=== PATIENT | female | born 2000 | race Caucasian/White ===

== ENCOUNTER 2023-03-04 12:30 | Emergency (ER) | payer MEDICAID ==
[2023-03-04 13:11] LABS: BASOPHILS ABSOLUTE AUTO 0.02 K/uL (0.02-0.10); BASOPHILS PERCENT AUTO 0.4 % (0.0-0.5); EOSINOPHILS ABSOLUTE AUTO 0.06 K/uL (0.04-0.40); EOSINOPHILS PERCENT AUTO 1.2 % (1.0-5.0); HEMATOCRIT 42.9 % (37.0-47.0); HEMOGLOBIN 14.7 g/dL (11.5-16.5); LYMPHOCYTES ABSOLUTE AUTO 1.35 K/uL (1.50-4.00); LYMPHOCYTES PERCENT AUTO 26.1 % (20.0-40.0); MEAN CORPUSCULAR HEMOGLOBIN 30.4 pg (27.0-32.0); MEAN CORPUSCULAR HGB CONC 34.3 g/dL (31.0-35.0); MEAN CORPUSCULAR VOLUME 89 fL (76-96); MEAN PLATELET VOLUME 10.5 fL (6.0-10.0); MONOCYTES ABSOLUTE AUTO 0.37 K/uL (0.20-0.80); MONOCYTES PERCENT AUTO 7.1 % (3.0-10.0); NEUTROPHILS ABSOLUTE AUTO 3.38 K/uL (2.00-7.50); NEUTROPHILS PERCENT AUTO 65.2 % (45.0-70.0); PLATELET COUNT,PLT 223 K/uL (150-500); RED BLOOD CELL COUNT 4.84 M/uL (3.80-5.80); WHITE BLOOD CELL COUNT,WBC 5.2 K/uL (4.0-11.0)
[2023-03-04 13:33] LABS: A/G RATIO 1.5 (0.8-2.0); ALBUMIN 5.1 g/dL (3.4-5.0); ANION GAP 13.5 mmol/L (5.0-15.0); BUN/CREATININE RATIO 14.1 (6-25); CALCIUM 9.5 mg/dL (8.5-10.1); CARBON DIOXIDE,CO2 29.5 mmol/L (21.0-32.0); CREATININE 0.92 mg/dL (0.55-1.02); EST CRCL DRUG DOSING (CG) 82.42 mL/min; PROTEIN TOTAL,TP 8.5 g/dL (6.4-8.2)
[2023-03-04 13:40] LABS: APPEARANCE,URINE CLEAR (CLEAR); BILIRUBIN,URINE NEGATIVE (NEGATIVE); COLOR,URINE YELLOW; GLUCOSE,URINE NEGATIVE (NEGATIVE); KETONES,URINE NEGATIVE (NEGATIVE); LEUKOCYTE ESTERASE,URINE NEGATIVE (NEGATIVE); NITRITE,URINE NEGATIVE (NEGATIVE); OCCULT BLOOD,URINE SMALL (NEGATIVE); PROTEIN,URINE NEGATIVE (NEGATIVE); UROBILINOGEN,URINE 0.2 E.U./dL (0.2-1.0)
[2023-03-04 13:47] LABS: BACTERIA,URINE FEW /HPF; MUCUS,URINE FEW /HPF; RBC,URINE 0-5 /HPF; SQUAMOUS EPITHELIAL CELLS,UR FEW /HPF; WBC,URINE 0-5 /HPF
[2023-03-04] MEDS ORDERED: Azithromycin 250 MG Tab PO ONE (14:42)
[2023-03-04] MEDS ORDERED: cefTRIAXone 500 MG Vial IM ONE (14:43)
[2023-03-04] MEDS ORDERED: cefTRIAXone 1 GM Vial ONE (14:52)
[2023-03-04] MEDS ORDERED: [UNRECOGNIZED DRUG - OTHER] ONE (17:20)
[2023-03-07 08:50] LABS: T.PALLIDUM AB,IGG (FTA-ABS) Non Reactive (Non Reactive)
[2023-03-07 11:57] LABS: APTIMA MEDIA TYPE Urine; C. TRACHOMATIS BY TMA Negative (Negative); N. GONORRHOEAE BY TMA Negative (Negative); SPECIMEN SOURCE Urine
[2023-03-07 12:43] LABS: APTIMA MEDIA TYPE Urine; C. TRACHOMATIS BY TMA Negative (Negative); N. GONORRHOEAE BY TMA Negative (Negative); SPECIMEN SOURCE Urine; T. VAGINALIS BY TMA Negative (Negative)
== END 2023-03-04 17:26 | disposition home or self-care (01) ==
LOC: LB.ED 12:30
DX: N89.8 Other specified noninflammatory disorders of vagina (principal); Z11.3 Encounter for screening for infections with a predominantly sexual mode of transmission
CPT/HCPCS: 36415; 80053; 81001; 81025; 85025; 86780; 87491; 87591; 87661; 96372; 99283; A9270; J0696; J2540

== ENCOUNTER 2024-04-24 17:44 | Emergency (ER) | payer MEDICAID ==
[2024-04-24] MEDS ORDERED: Azithromycin 250 MG Tab ONE (20:00)
[2024-04-24 20:05] LABS: INFLUENZA A NAA NEGATIVE (NEGATIVE); INFLUENZA B NAA NEGATIVE (NEGATIVE); RESPIRATORY SYNCYTIAL VIR NAA NEGATIVE (NEGATIVE)
[2024-04-24 20:06] LABS: CORONAVIRUS COVID-19 NAA NEGATIVE (NEGATIVE)
[2024-04-24] MEDS: predniSONE 20 MG Tab PO ONE (20:29)
== END 2024-04-24 20:30 | disposition home or self-care (01) ==
LOC: LB.ED 17:44
DX: J21.9 Acute bronchiolitis, unspecified (principal); J45.909 Unspecified asthma, uncomplicated; Z79.899 Other long term (current) drug therapy
CPT/HCPCS: 0241U; 87651-QW; 99283; A9270-GY; J7512